=== PATIENT | female | born 1980 | race Caucasian/White ===

== ENCOUNTER 2023-08-10 13:19 | Day surgery (SDC) | payer OTHER, SELFPAY ==
--- NOTE | 2023-08-10 | PATH_ITS ---
[facility] Accession Number: [id number] No. of containers..01 Tissue . 01 Material submitted: . esophagus - ESOPHAGEAL BIOPSIES . 01 Diagnosis: ESOPHAGEAL BIOPSIES: Squamous mucosa with no diagnostic alterations. Eosinophils are not increased. [facility] 08/15/2023 1402 Local . 01 Electronically signed: . Damaso Urbina MD, Pathologist NPI- [id number] . 01 Gross description: . Received in formalin with two patient identifiers and esophageal biopsies, are three hernandez soft tissue fragments, 0.3 to 0.4 cm in greatest dimension. Submitted entirely in A1. ([id number]) /MRV 08/15/2023 1402 Local . 01 Pathologist provided ICD-10: K21.9 . 01 CPT . 014630 Specimen Comment: A courtesy copy of this report has been sent to [phone] Performed at: [address] [id number] MD Damaso Urbina MD Phone: [phone]
--- NOTE | 2023-08-10 13:50 | PM.PREOP ---
Pre-operative Note COVID-19 COVID-19 status: Negative Interval Note History & Physical reviewed/Exam performed by Physician: Yes Changes to H&P: No ASA Class (for procedural sedation): I
--- NOTE | 2023-08-10 13:50 | PM.OP.EGD ---
Operative Date/Time/Diagnoses Date of procedure: 08/10/23 Pre-op diagnosis: See indication and findings Procedure & Clinicians Study performed: EGD Indications: Intermittent severe chest pain rule out GERD Surgeon: Jun Turk Procedure Notes Procedure in detail: After informed consent was obtained the patient was placed in left lateral decubitus position. The video upper scope was placed into the oropharynx and with the patient's help swallowed into the esophagus. The esophagus stomach and duodenum were carefully examined. On withdrawal, retroflexed view the GE junction was performed. The scope was removed. The patient tolerated the procedure well. Blood loss none Complications none Sedation mac Findings 1. Normal esophagus other than very faint ring-like structures in the mid esophagus. Biopsies taken to rule out eosinophilic esophagitis 2. Normal duodenum 3. Normal stomach We will merely way for biopsy results before deciding on next steps.
[2023-08-10 13:57] VITALS: BP 148/90; PULSE 81; RESP 18; TEMP 36; O2SAT 98
[2023-08-10] MEDS: LACTATED RINGERS 1,000 ML 42 ML IV (14:06)
[2023-08-10 15:16] VITALS: BP 145/89; PULSE 81; RESP 16; TEMP 36.2; O2SAT 97
[2023-08-10 15:21] VITALS: BP 132/93; PULSE 76; RESP 20; O2SAT 98
[2023-08-10 15:28] VITALS: BP 127/90; PULSE 75; RESP 16; TEMP 36.4; O2SAT 98
== END 2023-08-10 15:41 | disposition home or self-care (01) ==
PROVIDERS: PCP Nurse Practitioner Family; Referring Provider Internal Medicine Gastroenterology; Visit Provider Internal Medicine Gastroenterology
PROC: 0DJ08ZZ Inspection of Upper Intestinal Tract, Via Natural or Artificial Opening Endoscopic (ICD-10-PCS; CPT 43235; principal; 2023-08-10 14:30)
DX: R07.9 Chest pain, unspecified (principal)
CPT/HCPCS: 43235; J2704

== ENCOUNTER → 2024-02-19 14:22 | Outpatient (CLI) | payer OTHER, SELFPAY ==
[2024-02-19 15:05] LABS: Influenza A - CEPHEID Flu A POSITIVE (NEGATIVE); Influenza B - CEPHEID Flu B NEGATIVE (NEGATIVE); Respiratory Syncytial Virus Negative (Negative)
[2024-02-19 15:06] LABS: COVID-19 CEPHEID 4-PLEX PCR Negative (Negative)
== END ==
PROVIDERS: PCP Nurse Practitioner Family; Visit Provider Physician Assistant Medical
DX: R05.1 Acute cough (principal)
CPT/HCPCS: 0241U

== ENCOUNTER → 2024-02-19 14:35 | Outpatient (CLI) | payer OTHER, SELFPAY ==
--- NOTE | 2024-02-19 14:36 | DI.RAD.S_ITS ---
PROCEDURE: XR CHEST 2V INDICATIONS: Shortness of breath and chest pain TECHNIQUE: 2 views of the chest were acquired. COMPARISON: None. FINDINGS: Surgical changes and devices: None. Lungs and pleura: Mild interstitial opacities. No pleural effusions or dense consolidation. Mediastinum: Normal heart size Bones and chest wall: Unremarkable IMPRESSION: Mild interstitial opacities may represent atypical infection versus edema. No airspace consolidation or pleural effusion. Dictated by: Terry Ayala M.D. on 02/19/2024 at 13:50 Approved by: Terry Ayala M.D. on 02/19/2024 at 13:51
== END ==
PROVIDERS: PCP Nurse Practitioner Family; Referring Provider Physician Assistant Medical; Visit Provider Physician Assistant Medical
DX: R05.1 Acute cough (principal)
CPT/HCPCS: 0241U; 71046

== ENCOUNTER → 2024-04-02 07:40 | Outpatient (CLI) | payer OTHER, SELFPAY ==
--- NOTE | 2024-04-02 | DI.MG.S_ITS ---
BILATERAL DIGITAL DIAGNOSTIC MAMMOGRAM 3D/2D: 04/02/2024 CLINICAL: Breast mass. No prior exams were available for comparison. The breasts are heterogeneously dense, which may obscure small masses (category c / 51-75% glandular tissue). There are multiple oval focal asymmetries with an obscured margin in the left breast superior lateral quadrant middle depth of variable sizes. No other significant masses, calcifications, or other findings are seen in either breast. IMPRESSION: INCOMPLETE: NEED ADDITIONAL IMAGING EVALUATION The multiple oval focal asymmetries in the left breast resemble clustered cysts and are indeterminate. Area of previously palpated area of concern is no longer felt by the patient today. An ultrasound is recommended for further evaluation and is scheduled to immediately follow this examination. Based on the Tyrer Cuzick model (a risk assessment model) the patient's lifetime risk is 8.9% and her 10 year risk is 1.4%. According to the ACR, ACS, and NCCN guidelines, an annual breast MRI exam along with mammogram is recommended if the patient's lifetime risk is 20% or greater. This exam was interpreted at Station ID: [id number]. NOTE: For mammograms, a report in lay terms will be sent to the patient. Approximately 15% of breast malignancies will not be visualized mammographically. In the management of a palpable breast mass, a negative mammogram must not discourage biopsy of a clinically suspicious lesion. Electronically Signed By: Josr Torres M.D. aty/:04/02/2024 08:17:06 letter sent: Additional Imaging Needed ACR BI-RADS Category 0: Incomplete: Need Additional Imaging Evaluation
--- NOTE | 2024-04-02 | DI.US.S_ITS ---
ULTRASOUND OF LEFT BREAST: 04/02/2024 CLINICAL: Palpable left breast lump. Comparison is made to exams dated: 04/02/2024 mammogram - [facility], 03/01/2022 mammogram, and 03/25/2023 mammogram - [facility]. Color flow and real-time ultrasound of the left breast were performed. Tang scale images of the real-time examination were reviewed. Multiple scattered simple cysts of variable sizes noted in the left breast upper outer and upper inner quadrants. Multiple scattered variably sized presumed complicated cysts are also noted in the the upper inner and upper outer quadrants of the left breast. Most suspicious cysts are noted at 9 o'clock 2 cm from nipple, 9 o'clock retroareolar, 9 o'clock 6cm from the nipple, 12 o'clock axis. No suspicious masses seen. IMPRESSION: PROBABLY BENIGN Palpable area of concern in the left breast correlate with multiple cluster of simple and complicated cysts in the upper inner and upper outer quadrants of the left breast. These are probably benign. Recommend clinical follow up for persistent or worsening symptoms, or development of any clinically suspicious findings. A follow-up left mammogram and an ultrasound in 6 months is recommended to demonstrate stability. Findings and recommendations were conveyed to the patient during today's evaluation. This exam was interpreted at Station ID: [id number]. Electronically Signed By: Josr Torres M.D. aty/:04/02/2024 15:11:10 letter sent: Followup Recommended ACR BI-RADS Category 3: Probably Benign
== END ==
PROVIDERS: PCP Nurse Practitioner Family; Referring Provider Nurse Practitioner Family; Visit Provider Nurse Practitioner Family
DX: N63.20 Unspecified lump in the left breast, unspecified quadrant (principal); R92.333 Mammographic heterogeneous density, bilateral breasts; R92.8 Other abnormal and inconclusive findings on diagnostic imaging of breast; N60.02 Solitary cyst of left breast
CPT/HCPCS: 76642; 77066; G0279

== ENCOUNTER → 2024-06-28 09:34 | Outpatient (CLI) | payer OTHER, SELFPAY | LOC: CAR 09:35 | PROVIDERS: PCP Nurse Practitioner Family; Referring Provider Nurse Practitioner Family; Visit Provider Nurse Practitioner Family | DX: R07.9 Chest pain, unspecified (principal) | CPT/HCPCS: 93246 ==

== ENCOUNTER → 2024-09-11 10:20 | Outpatient (CLI) | payer OTHER, SELFPAY ==
--- NOTE | 2024-09-11 10:22 | DI.US.S_ITS ---
MM diagnostic mammo unilat LT, US breast LT limited: 09/11/2024 BI-RADS: 3 CLINICAL: 43-year old female for left diagnostic mammogram and left diagnostic breast ultrasound. Tyrer-Cuzick lifetime risk of 11.3%. No personal or first-degree family history of breast cancer. Current reported family history of breast cancer: maternal aunt. PRIOR EXAMS 04/02/2024, 04/01/2023, 03/01/2022. MAMMOGRAPHY TECHNIQUE: 2D and 3D (tomosynthesis) digital mammographic views obtained, with additional images as needed for full coverage. Current study was also evaluated with a Computer Aided Detection (CAD) system. ULTRASOUND TECHNIQUE TARGETED Left Breast Ultrasound: Real-time ultrasound exam was performed focused to area of clinical and/or imaging concern. Real-time boggs scale and color doppler imaging of the area of clinical interest was performed with image documentation. DENSITY Left: C. The breast is heterogeneously dense, which may obscure small masses. MAMMOGRAPHY FINDINGS Left: Upper Outer Quadrant, Middle depth: Similar appearance of multiple oval masses with circumscribed and obscured margins. ULTRASOUND FINDINGS Left: Inner at 9:00, Retroareolar, measuring 0.6 x 0.4 x 0.5 cm - previously measuring (04/02/2024) 0.5 x 0.3 x 0.5 cm: There is a complicated cyst with low level echoes. Left: Inner at 9:00, 2 cm from nipple, measuring 0.5 x 0.4 x 0.5 cm - previously measuring (04/02/2024) 0.4 x 0.3 x 0.6 cm: There is a complicated cyst with low level echoes. Left: Inner at 9:00, 6 cm from nipple, measuring 0.9 x 0.6 x 0.7 cm - previously measuring (04/02/2024) 0.9 x 0.7 x 0.8 cm: There is a cyst with artifacts showing posterior acoustic enhancement. Left: Upper at 12:00, 3 cm from nipple, measuring 1.1 x 0.5 x 1.2 cm - previously measuring (04/02/2024) 0.9 x 0.6 x 1.2 cm: There are clustered macrocysts. Left: Upper at 12:00, 3 cm from nipple, measuring 0.9 x 0.5 x 0.8 cm - previously measuring (04/02/2024) 1 x 0.5 x 0.8 cm: There are clustered macrocysts. IMPRESSION: Left (Complicated Cyst): Inner at 9:00, Retroareolar, measuring 0.6 x 0.4 x 0.5 cm - previously measuring (04/02/2024) 0.5 x 0.3 x 0.5 cm * Probably Benign. Left (Complicated Cyst): Inner at 9:00, 2 cm from nipple, measuring 0.5 x 0.4 x 0.5 cm - previously measuring (04/02/2024) 0.4 x 0.3 x 0.6 cm * Probably Benign. Left (Simple Cyst): Inner at 9:00, 6 cm from nipple, measuring 0.9 x 0.6 x 0.7 cm - previously measuring (04/02/2024) 0.9 x 0.7 x 0.8 cm * Probably Benign. Left (Simple Cyst): Upper at 12:00, 3 cm from nipple, measuring 1.1 x 0.5 x 1.2 cm - previously measuring (04/02/2024) 0.9 x 0.6 x 1.2 cm * Probably Benign. Left (Simple Cyst): Upper at 12:00, 3 cm from nipple, measuring 0.9 x 0.5 x 0.8 cm - previously measuring (04/02/2024) 1 x 0.5 x 0.8 cm * Probably Benign. RECOMMENDATIONS Left * Six month followup with diagnostic mammography and diagnostic ultrasound. When the patient returns for short-term unilateral followup, a mammogram for the contralateral breast will also be due. COMMENTS: Findings and recommendations were conveyed to the patient during today's evaluation. OVERALL ASSESSMENT CATEGORY BI-RADS-3: Probably Benign. ELECTRONICALLY SIGNED: Pastora Stallings M.D. on 09/11/2024 at 01:49:14 PM PT Interpreting Station ID: [id number]
== END ==
LOC: MAMMO 10:21
PROVIDERS: PCP Nurse Practitioner Family; Referring Provider Nurse Practitioner Family; Visit Provider Nurse Practitioner Family
DX: R92.8 Other abnormal and inconclusive findings on diagnostic imaging of breast (principal); N63.20 Unspecified lump in the left breast, unspecified quadrant; N60.02 Solitary cyst of left breast; Z80.3 Family history of malignant neoplasm of breast; R92.332 Mammographic heterogeneous density, left breast
CPT/HCPCS: 76642; 77065; G0279